=== PATIENT | female | born 1995 | race Caucasian/White ===

== ENCOUNTER 2018-03-26 12:38 | Emergency (ER) | payer OTHER ==
--- NOTE | 2018-03-26 13:25 | CR ---
CLINICAL HISTORY: 22-year-old female with pain left ankle. INTERPRETATION: No sign of left ankle fracture or dislocation. No arthritic degenerative changes tibi otalar joint. Tiny heel spurs appear to be forming at the insertion plantar aponeurosis and Achilles tendon on the os calcis. No foreign bodies. No pathologic skeletal lesions.
--- NOTE | 2018-03-26 13:32 | EDM.PDOC ---
ED HPI GENERAL MEDICAL PROBLEM - General Chief Complaint: Lower Extremity Injury/Pain Stated Complaint: ROLLED LEFT ANKLE Time Seen by Provider: 03/26/18 13:15 Source of Information: Reports: Patient, RN, RN Notes Reviewed History Limitations: Reports: No Limitations - History of Present Illness INITIAL COMMENTS - FREE TEXT/NARRATIVE: Pt presents to the ER with c/o left ankle pain. Patient states she was doing teamwork exercises at [facility] when she fell from an unknown height "very high" and landed on a bar. She states when coming down she straddled the bar and rolled her ankle. She denies hitting her head or losing consciousness, denies pain or the need for examination in the pelvic area. She states the only pain she is having at this time is in the left ankle. Onset: Today, Sudden Duration: Constant Location: Reports: Lower Extremity, Left Quality: Reports: Stabbing, Throbbing Severity: Moderate Improves with: Reports: None Worsens with: Reports: None Associated Symptoms: Reports: No Other Symptoms Left Ankle Pain Score (Numeric/FACES): 8 - Related Data Allergies Allergy/AdvReac Type Severity Reaction Status Date / Time No Known Allergies Allergy Verified 03/26/18 12:58 Home Meds: Home Meds . [No Known Home Meds] 03/26/18 [History] Past Medical History - Past Health History Medical/Surgical History: Denies Medical/Surgical History Other OB/BYN History: LMP March 14, 2018. On Control Social & Family History - Tobacco Use Smoking Status *Q: Never Smoker Second Hand Smoke Exposure: No Review of Systems - Review of Systems Review Of Systems: ROS reveals no pertinent complaints other than HPI. ED EXAM, GENERAL - Physical Exam Exam: See Below Exam Limited By: No Limitations General Appearance: Alert, WD/WN, No Apparent Distress Eye Exam: Bilateral Eye: EOMI, Normal Inspection Ears: Normal External Exam, Hearing Grossly Normal Nose: Normal Inspection Throat/Mouth: Normal Inspection, Normal Voice, No Airway Compromise Head: Atraumatic, Normocephalic Neck: Normal Inspection, Supple, Non-Tender, Full Range of Motion Respiratory/Chest: No Respiratory Distress, Lungs Clear, Normal Breath Sounds, No Accessory Muscle Use, Chest Non-Tender Cardiovascular: Normal Peripheral Pulses, Regular Rate, Rhythm, No Edema, No Gallop, No JVD, No Murmur, No Rub Peripheral Pulses: 2+: Brachial (L), Brachial (R), Dorsalis Pedis (L) GI/Abdominal: Normal Bowel Sounds, Soft, Non-Tender (Female) Exam: Deferred Rectal (Female) Exam: Deferred Back Exam: Normal Inspection, Full Range of Motion, NT Extremities: Joint Swelling (left ankle), Leg Pain (left ankle), Limited Range of Motion (left ankle) Neurological: Alert, Oriented, CN II-XII Intact, Normal Cognition, Normal Gait, Normal Reflexes, No Motor/Sensory Deficits Psychiatric: Normal Affect, Normal Mood Skin Exam: Warm, Dry, Intact, Normal Color, No Rash Lymphatic: No Adenopathy Course - Vital Signs Last Recorded V/S: Last Vital Signs Temp 97.9 F 03/26/18 12:42 Pulse 89 03/26/18 12:42 Resp 16 03/26/18 12:42 BP 126/68 03/26/18 12:42 Pulse Ox 99 03/26/18 12:42 - Radiology Interpretation Free Text/Narrative:: Left ankle xray: No acute fracture or dislocation See rad report Departure - Departure Time of Disposition: 13:42 Disposition: Home, Self-Care 01 Condition: Fair Clinical Impression: Sprain of ankle Qualifiers: Encounter type: initial encounter Involved ligament of ankle: unspecified ligament Laterality: left Qualified Code(s): S93.402A - Sprain of unspecified ligament of left ankle, initial encounter - Discharge Information Instructions: How to Use a Stirrup Ankle Brace, [id number], Ankle Sprain, [id number] Forms: ED Department Discharge Additional Instructions: Rest, Ice, Elevate as tolerated May return to daily activity as tolerated May use ibuprofen and/or tylenol for pain Use Stirrup ankle brace as tolerated Follow up with your primary care facility if no improvement
== END 2018-03-26 14:04 | disposition home or self-care (01) ==
LOC: DL.ED 12:38
DX: S93.402A Sprain of unspecified ligament of left ankle, initial encounter (principal); W17.89XA Other fall from one level to another, initial encounter; Y93.B9 Activity, other involving muscle strengthening exercises
CPT/HCPCS: 73610-LT; 99283